=== PATIENT | female | born 1975 | race African-American/Black ===

== ENCOUNTER 2019-03-10 15:21 | Emergency (ER) | payer MEDICAID ==
[~2019-03-10] VITALS: Ht 165.1 cm; Wt 59.0 kg
[~2019-03-10 15:21] MED LIST: CEPHALEXIN500 MG PO; DOXYCYCLINE MO100 MG PO; IBUPROFEN600 MG PO; NKM
[2019-03-10] MEDS ORDERED: SEROQUEL50 MG ORAL (15:27)
[2019-03-10] MEDS ORDERED: ABILIFY2 MG ORAL (15:27)
[2019-03-10 15:38] VITALS: BP 126/73
--- NOTE | 2019-03-10 16:40 | Emergency Room Report ---
History of Present Illness General Chief Complaint: Upper Extremity Injury Source: Patient Present Illness HPI 43-year-old female presents to the emergency department complaining of 10 out of 10 severity pain to the right shoulder x 4 day. Patient reports that she was arrested last week and in the process she also was tied down at the hospital and was given psychiatric medications. She states that she did not start to notice the pain until after the medications were off when she woke up the next day. Vision denies significant trauma or fall otherwise. Patient reports intermittent paresthesias down the right arm she reports feeling muscle contractions. Patient denies midline neck or back pain. She denies hitting her head or having a loss of consciousness. She denies loss of gross motor movements. Denies numbness tingling or loss of sensation or gross motor movements of the extremities, incontinence of bowel or bladder. Denies CP, Palpitations, LOC, AMS, dizziness, Changes in Vision, weakness or a sudden severe headache. Allergies: Coded Allergies: No Known Allergies (Unverified , 08/23/12) Patient History Past Medical History: see triage record Past Surgical History: none Pertinent Family History: none Reviewed Nursing Documentation: PMH: Agreed; PSxH: Agreed Nursing Documentation-PMH Past Medical History: No History, Except For History Of Psychiatric Problem: Yes - SCHIZOAFFECTIVE Review of Systems All Other Systems: negative except mentioned in HPI Physical Exam Vital Signs Date Time Temp Pulse Resp B/P (MAP) Pulse Ox O2 Delivery O2 Flow Rate FiO2 03/10/19 15:24 98.2 95 17 126/73 (90) 100 Room Air Sp02 EP Interpretation: reviewed, normal General Appearance: no apparent distress, alert, GCS 15, non-toxic Head: normocephalic, atraumatic Eyes: bilateral eye normal inspection, bilateral eye PERRL ENT: hearing grossly normal, normal voice Neck: full range of motion Respiratory: chest non-tender, lungs clear, normal breath sounds, speaking full sentences Cardiovascular #1: regular rate, rhythm, normal capillary refill Cardiovascular #2: 2+ radial (R), 2+ radial (L) Musculoskeletal: back normal, gait/station normal, normal range of motion, tender - TTP to the anterior aspect of the right shoulder and posterior aspect as well as the right trapezius. FROM without clicking, no obvious step-off. pain with lift off test and when arm is raised up to the 90* point Neurologic: alert, oriented x3, responsive, motor strength/tone normal, sensory intact, speech normal, grossly normal Psychiatric: judgement/insight normal Skin: normal color, no rash, warm/dry, well hydrated Medical Decision Making RANDA Attestation Dr. Grady Is my supervising Physician whom patient management has been discussed with. Diagnostic Impression: Primary Impression: Injury of right rotator cuff Qualified Codes: S46.001A - Unspecified injury of muscle(s) and tendon(s) of the rotator cuff of right shoulder, initial encounter Additional Impression: Unspecified sprain of left shoulder joint, initial encounter ER Course 43-year-old female presents to the emergency department complaining of 10 out of 10 severity pain to the right shoulder x 4 day. Patient reports that she was arrested last week and in the process she also was tied down at the hospital and was given psychiatric medications. She states that she did not start to notice the pain until after the medications were off when she woke up the next day. Vision denies significant trauma or fall otherwise. Patient reports intermittent paresthesias down the right arm she reports feeling muscle contractions. Patient denies midline neck or back pain. She denies hitting her head or having a loss of consciousness. She denies loss of gross motor movements. Denies numbness tingling or loss of sensation or gross motor movements of the extremities, incontinence of bowel or bladder. Denies CP, Palpitations, LOC, AMS, dizziness, Changes in Vision, weakness or a sudden severe headache. Ddx considered but are not limited to Fracture, dislocation, contusion, Sprain/ Strain/Spasm Vital signs: are WNL, pt. is afebrile. H&PE are most consistent with musculoskeletal injury will perform imaging to r/ o fractures/dislocations. ORDERS: - X-ray Right Shoulder - negative for obvious fx - questionable avulsion fx - but does not clinically align with where pt. is having ttp., Dislocation, or significant soft tissue injury, per preliminary read in ED, and signed by RANDA Zavala, my supervising physician has reviewed, and agrees with my interpretation. ED INTERVENTIONS: -- Right arm Sling applied by behavioral health technician. Pt. remains neurovascularly intact. DISCHARGE: At this time pt. is stable for d/c to home. Will provide printed patient care instructions, and any necessary prescriptions. Care plan and follow up instructions have been discussed with the patient prior to discharge. Other X-Ray Diagnostic Results Other X-Ray Diagnostic Results : X-Ray ordered: right shoulder # of Views/Limited Vs Complete: 3 View Indication: Pain EP Interpretation: Yes PA Xray: Interpretation reviewed, by supervising MD, and agrees with findings. Interpretation: no dislocation, no soft tissue swelling, no fractures Impression: No acute disease Electronically Signed by: Shanna Zavala PA-C Last Vital Signs Date Time Temp Pulse Resp B/P (MAP) Pulse Ox O2 Delivery O2 Flow Rate FiO2 03/10/19 15:38 98.2 95 17 126/73 100 Room Air Disposition: HOME, SELF-CARE Condition: Stable Scripts Methocarbamol* (ROBAXIN-750*) 750 Mg Tablet 750 MG PO TID for 7 Days, #21 TAB 0 Refills Prov: Shanna Zavala 03/10/19 Ibuprofen* (MOTRIN*) 600 Mg Tablet 600 MG ORAL THREE TIMES A DAY, #20 TAB 0 Refills Prov: Shanna Zavala 03/10/19 Referrals: [facility],REFERRING (PCP) Patient Instructions: Rotator Cuff Injury Additional Instructions: Take medications as directed. Follow up with an [facility]IA[facility] ENGINEER in 3-5 days, even if your symptoms have resolved. If symptoms persist MRI may be required at the discretion of your PCP or Ortho Specialist. --Please review list of primary care clinics, if you do not already have a primary care provider who can give you an Orthopedic Referral. Return sooner to ED if new symptoms occur, or current symptoms become worse. Do not drink alcohol, drive, or operate heavy machinery while taking Robaxin as this may cause drowsiness. - Please note that this Emergency Department Report was dictated using [employer] software, occasionally this can lead to erroneous entry secondary to interpretation by the dictation equipment. Shanna Zavala Mar 10, 2019 16:40
[2019-03-10] MEDS ORDERED: ROBAXIN-750750 MG PO (16:41)
[2019-03-10] MEDS ORDERED: IBUPROFEN600 MG ORAL (16:41)
--- NOTE | 2019-03-10 16:50 | Diagnostic Imaging Report ---
Indication: Right shoulder pain Technique: 3 views of the right shoulder Comparison: none Findings: A sliver-shaped calcific density is seen adjacent to the greater tuberosity. No definite acute fractures or dislocations. The joint spaces are preserved. Impression: Small calcific density adjacent to the greater tuberosity. 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 Correlate with clinical findings No other acute abnormality Findings discussed by phone with Shanna Zavala in the emergency room at the time of interpretation
[2019-03-10 16:55] VITALS: BP 111/70
== END 2019-03-10 16:57 | disposition home or self-care (01) ==
LOC: EMR 16:05
DX: S43.421A Sprain of right rotator cuff capsule, initial encounter (principal); Y35.93XA Legal intervention, means unspecified, suspect injured, initial encounter
CPT/HCPCS: 99283